=== PATIENT | male | born 1965 | race Caucasian/White ===

== ENCOUNTER → 2018-09-20 10:13 | Outpatient (CLI) | payer OTHER, SELFPAY | PROVIDERS: Visit Provider Physician Assistant | DX: J02.9 Acute pharyngitis, unspecified (principal) | CPT/HCPCS: 87070; 87077; 87185 ==

== ENCOUNTER 2024-04-10 16:33 | Emergency (ER) | payer OTHER, SELFPAY ==
[2024-04-10 16:35] VITALS: BP 129/79; PULSE 94; RESP 17; TEMP 36.9; O2SAT 95; BMI 27.4
--- NOTE | 2024-04-10 16:45 | ED_ITS ---
HPI - Back Pain/Injury <Tabby Parmar PA-C - Last Filed: 04/10/24 19:56> General Chief Complaint: Back Pain/Injury Stated Complaint: back px, urinating blood Time Seen by Provider: 04/10/24 16:45 Source: patient History of Present Illness HPI Narrative: Mr. Fernie Tony is a very pleasant 58-year-old male with only reported past medical history of bilateral testicular surgery when he was 1 years old who presents to the emergency department with his from home for mid low back pain x4 days and hematuria and bladder dysfunction since early this morning. Patient states Friday he noticed some pain in his mid low back there was no inciting injury or direct trauma. States the pain got slightly better on . However last night the pain got much worse and in the middle of the night he went to the bathroom and noticed he was having a difficult time urinating, he dribbles bloody urine onto the floor. Feels like he is unable to empty his bladder fully. He denies abdominal pain, flank pain, constipation or diarrhea, loss of bowel control, numbness and tingling of the lower legs or the groin. No pain in the legs. Denies chest pain, shortness of breath, fevers, flu symptoms, cough. He took Advil last night but no medications today. No drug use, nonsmoker. He uses alcohol very occasionally. Bladder scan obtained immediately in the emergency department reveals only 45 mL in the bladder. Related Data Previous Rx's Medication Instructions Recorded sulfamethoxazole 800 1 tab PO BID 7 days #14 tabs 04/10/24 mg-trimethoprim 160 mg tablet (Bactrim DS) Allergies Allergy/AdvReac Type Severity Reaction Status Date / Time No Known Drug Allergies Allergy Verified 04/10/24 16:35 Review of Systems <Tabby Parmar PA-C - Last Filed: 04/10/24 19:56> Review of Systems ROS Unobtainable: All systems reviewed & are unremarkable except as noted in HPI and below Patient History <Tabby Parmar PA-C - Last Filed: 04/10/24 19:56> Social History Smoking Status: Never smoker Smoking Status: Never smoker Alcohol type: beer Exam <Tabby Parmar PA-C - Last Filed: 04/10/24 19:56> Narrative Exam Narrative: GENERAL: 58 year old patient appears stated age. Well-developed patient, in no acute distress. HEAD: Atraumatic. Normocephalic. NECK: Trachea midline. Cervical ROM intact. CARDIOVASCULAR: Regular rate and rhythm. RESPIRATORY: ?Nonlabored respirations. ?Speaking in clear, full sentences. ?Clear to auscultation. GASTROINTESTINAL: Abdomen soft, non-tender, nondistended. Normal bowel sounds. EXTREMITIES: No edema or joint tenderness. BACK: Subjective pain in the mid lumbar spine region with no reproducible pain or tenderness. Mild erythema over this area reported from heating pad use. No pain lying flat, pain when sitting upright. No CVA tenderness bilaterally. Bilateral positive straight leg raise at 90? NEURO: AOx3. ?Clear speech. ?Moves all 4 extremities appropriately. Sensation intact to light touch in the bilateral lower extremities, groin, on the plantar and dorsal aspect of the feet. Strong DP and PT pulses bilaterally. SKIN: No rashes Initial Vital Signs Initial Vital Signs: Vital Signs Temperature 98.5 F 04/10/24 16:35 Pulse Rate 94 H 04/10/24 16:35 Respiratory Rate 17 04/10/24 16:35 Blood Pressure 129/79 04/10/24 16:35 Pulse Oximetry 95 04/10/24 16:35 Oxygen Delivery Method Room Air 04/10/24 16:35 <Nhan Rdz MD - Last Filed: 04/10/24 21:25> Initial Vital Signs Initial Vital Signs: Vital Signs Temperature 98.5 F 04/10/24 16:35 Pulse Rate 94 H 04/10/24 16:35 Respiratory Rate 17 04/10/24 16:35 Blood Pressure 129/79 04/10/24 16:35 Pulse Oximetry 95 04/10/24 16:35 Oxygen Delivery Method Room Air 04/10/24 16:35 Course <Tabby Parmar PA-C - Last Filed: 04/10/24 19:56> Orders Ordered: ED Orders 04/10/24 17:00 CT IVP A/P W/WO Stat 04/10/24 17:19 CBC Auto Diff [Complete Blood Count AUTO DIFF] Stat CMP [Comprehensive Metabolic Panel] Stat Lipase Stat 04/10/24 18:47 Urine Culture Stat Urine Microscopic Stat Discontinued Medications Sodium Chloride (Normal Saline 0.9%) 1,000 mls @ 1,000 mls/hr IV BOLUS ONE Stop: 04/10/24 18:12 Last Infusion: 04/10/24 18:25 Dose: Infused Documented By: Admin: 04/10/24 17:24 Dose: 1,000 mls/hr Documented By: JAMAR Ceftriaxone Sodium 1,000 mg/ (Sodium Chloride) 100 mls @ 200 mls/hr IV NOW ONE Stop: 04/10/24 19:22 Last Infusion: 04/10/24 20:04 Dose: Infused Documented By: Admin: 04/10/24 19:35 Dose: 200 mls/hr Documented By: ALAN Ketorolac Tromethamine (Ketorolac 30 Mg/Ml Vial) 15 mg IV NOW ONE Stop: 04/10/24 17:01 Last Admin: 04/10/24 17:24 Dose: 15 mg Documented By: JAMAR Morphine Sulfate (Morphine 4 Mg/Ml Inj) 4 mg IV NOW ONE Stop: 04/10/24 17:04 Last Admin: 04/10/24 17:25 Dose: 4 mg Documented By: JAMAR Ondansetron HCl (Ondansetron 4 Mg/2 Ml Inj) 4 mg IV NOW ONE Stop: 04/10/24 17:04 Last Admin: 04/10/24 17:24 Dose: 4 mg Documented By: JAMAR Vital Signs Vital signs: Vital Signs - 8 hr 04/10/24 16:35 04/10/24 18:08 04/10/24 18:30 Temperature 98.5 F Pulse Rate 94 H 73 78 Respiratory Rate 17 16 Blood Pressure 129/79 Pulse Oximetry 95 94 Oxygen Delivery Method Room Air Room Air 04/10/24 18:51 04/10/24 18:51 04/10/24 19:59 Temperature Pulse Rate 65 52 L Respiratory Rate 14 14 Blood Pressure 109/63 140/82 Pulse Oximetry 94 97 Oxygen Delivery Method Room Air Room Air <Nhan Rdz MD - Last Filed: 04/10/24 21:25> Orders Ordered: ED Orders 04/10/24 17:00 CT IVP A/P W/WO Stat 04/10/24 17:19 CBC Auto Diff [Complete Blood Count AUTO DIFF] Stat CMP [Comprehensive Metabolic Panel] Stat Lipase Stat 04/10/24 18:47 Urine Culture Stat Urine Microscopic Stat Discontinued Medications Sodium Chloride (Normal Saline 0.9%) 1,000 mls @ 1,000 mls/hr IV BOLUS ONE Stop: 04/10/24 18:12 Last Infusion: 04/10/24 18:25 Dose: Infused Documented By: Admin: 04/10/24 17:24 Dose: 1,000 mls/hr Documented By: MLVika Ceftriaxone Sodium 1,000 mg/ (Sodium Chloride) 100 mls @ 200 mls/hr IV NOW ONE Stop: 04/10/24 19:22 Last Infusion: 04/10/24 20:04 Dose: Infused Documented By: Admin: 04/10/24 19:35 Dose: 200 mls/hr Documented By: ALAN Ketorolac Tromethamine (Ketorolac 30 Mg/Ml Vial) 15 mg IV NOW ONE Stop: 04/10/24 17:01 Last Admin: 04/10/24 17:24 Dose: 15 mg Documented By: JAMAR Morphine Sulfate (Morphine 4 Mg/Ml Inj) 4 mg IV NOW ONE Stop: 04/10/24 17:04 Last Admin: 04/10/24 17:25 Dose: 4 mg Documented By: JAMAR Ondansetron HCl (Ondansetron 4 Mg/2 Ml Inj) 4 mg IV NOW ONE Stop: 04/10/24 17:04 Last Admin: 04/10/24 17:24 Dose: 4 mg Documented By: JAMAR Vital Signs Vital signs: Vital Signs - 8 hr 04/10/24 16:35 04/10/24 18:08 04/10/24 18:30 Temperature 98.5 F Pulse Rate 94 H 73 78 Respiratory Rate 17 16 Blood Pressure 129/79 Pulse Oximetry 95 94 Oxygen Delivery Method Room Air Room Air 04/10/24 18:51 04/10/24 18:51 04/10/24 19:59 Temperature Pulse Rate 65 52 L Respiratory Rate 14 14 Blood Pressure 109/63 140/82 Pulse Oximetry 94 97 Oxygen Delivery Method Room Air Room Air MDM - Back Pain/Injury <Tabby Parmar PA-C - Last Filed: 04/10/24 19:56> Medical Records Attestation: I reviewed the patient's medical records. Lab Data 04/10/24 17:19 04/10/24 17:19 Labs: Lab Results 01/25/25 01/25/25 Range/Units 17:19 18:47 WBC 11.2 H (4.5-11.0) X10^3/uL RBC 5.04 (4.5-5.9) X10^6/uL Hgb 15.3 (13.5-17.5) g/dL Hct 44.6 (41-53) % MCV 88.5 (80-100) fL MCH 30.3 (26-34) PG MCHC 34.3 (30-36) % RDW 13.5 (11.6-14.8) % Plt Count 198 (150-400) X10^3/uL Neut % (Auto) 83.8 H (50-75) % Lymph % (Auto) 7.3 L (25-40) % [place] % (Auto) 8.4 (3-14) % Eos % (Auto) 0.1 L (2-4) % Baso % (Auto) 0.4 (0-2) % Neut # (Auto) 9400 H (6560-7070) /uL Lymph # (Auto) 800 L (3971-3767) /uL [place] # (Auto) 900 (0-900) /uL Eos # (Auto) 0 (0-450) /uL Baso # (Auto) 0 (0-100) /uL Sodium 135 L (137-145) mmol/L Potassium 4.3 (3.4-5.1) mmol/L Chloride 102 (98-107) mmol/L Carbon Dioxide 25 (22-32) mmol/L BUN 18 (9-20) mg/dL Creatinine 1.21 (0.66-1.25) mg/dL Estimated GFR > 60 (>60) mL/min BUN/Creatinine Ratio 14.9 (6-22) Glucose 106 H (70-100) mg/dL Calcium 9.4 (8.4-10.2) mg/dL Total Bilirubin 1.8 H (0.2-1.3) mg/dL AST 28 (17-59) IU/L ALT 33 (<50) IU/L Alkaline Phosphatase 45 (38-126) U/L Total Protein 7.9 (6.3-8.2) g/dL Albumin 4.5 (3.5-5.0) g/dL Globulin 3.4 (1.7-4.1) g/dL Albumin/Globulin Ratio 1.3 (1.0-2.8) Lipase 42 (23-300) U/L Urine RBC 5-10/hpf H (0-5/HPF) Urine WBC 5-10/hpf H (0-5/HPF) Ur Squamous Epith Cells None seen (0-5/HPF) Urine Bacteria Moderate (10-30) H (None) Ur Culture Indicated? Specimen cultured Vol Urine Centrifuged 10ml (spun) MDM Narrative Medical decision making narrative: 58-year-old male with only reported past medical history of bilateral testicular surgery when he was 1 years old who presents to the emergency department with his from home for mid low back pain x4 days and hematuria and bladder dysfunction since early this morning. Differential diagnosis includes but is not limited to neurogenic bladder, spinal stenosis, MARTIN, lumbar radiculopathy, urinary retention, UTI, malignancy, bladder mass, nephrolithiasis, ureterolithiasis, hydronephrosis pyelonephritis, etc. Discussed case with ED attending physician. On exam the patient is in no acute distress, nontoxic appearing, he is in significant pain with going from lying to sitting position. Only has 45 mL in the bladder at this time. Subjective pain in the mid lumbar region with no tenderness, bilateral lower extremities are neurovascularly intact. We will proceed with noncontrast and contrast imaging of the abdomen and pelvis, CBC, CMP, lipase, UA, Toradol morphine Zofran for pain control. Labs reveal WBC count 11.2, hemoglobin 15.3 hematocrit 44.6. Elevated neutrophil % at 83.8%. Sodium 135, BUN 18, creatinine 1.21. Normal lipase 42. Urine reveals 5-10 RBCs, 5-10 WBCs, moderate bacteria, concerning for infection. CT scan reveals moderate generalized bladder wall thickening. Please correlate with a bladder outlet obstruction and outpatient this age. There is no nephrolithiasis or filling defects within the renal collecting system or ureters, no hydronephrosis. Bones reveal age-appropriate bony degenerative changes, no aggressive osseous abnormality. After receiving 1 L of IV fluids and voiding spontaneously, patient had a postvoid residual of about 50 mL. Not consistent with the need for Polanco catheter at this time. We will treat suspected cystitis with 1 g Rocephin in the ED followed by Bactrim b.i.d. x7 days for home. Discussed case significantly with the patient his at the bedside, provided them with a printed copy of CT scan report and discussed all incidental findings. Discussed the importance of following up with urology for cystoscopy. Discussed signs and symptoms to return to the ED for. Patient is verbalized understanding of all information, he is stable for discharge home. <Nhan Rdz MD - Last Filed: 04/10/24 21:25> Lab Data Labs: Lab Results 04/10/24 04/10/24 Range/Units 17:19 18:47 WBC 11.2 H (4.5-11.0) X10^3/uL RBC 5.04 (4.5-5.9) X10^6/uL Hgb 15.3 (13.5-17.5) g/dL Hct 44.6 (41-53) % MCV 88.5 (80-100) fL MCH 30.3 (26-34) PG MCHC 34.3 (30-36) % RDW 13.5 (11.6-14.8) % Plt Count 198 (150-400) X10^3/uL Neut % (Auto) 83.8 H (50-75) % Lymph % (Auto) 7.3 L (25-40) % [place] % (Auto) 8.4 (3-14) % Eos % (Auto) 0.1 L (2-4) % Baso % (Auto) 0.4 (0-2) % Neut # (Auto) 9400 H (3622-6624) /uL Lymph # (Auto) 800 L (1424-1751) /uL [place] # (Auto) 900 (0-900) /uL Eos # (Auto) 0 (0-450) /uL Baso # (Auto) 0 (0-100) /uL Sodium 135 L (137-145) mmol/L Potassium 4.3 (3.4-5.1) mmol/L Chloride 102 (98-107) mmol/L Carbon Dioxide 25 (22-32) mmol/L BUN 18 (9-20) mg/dL Creatinine 1.21 (0.66-1.25) mg/dL Estimated GFR > 60 (>60) mL/min BUN/Creatinine Ratio 14.9 (6-22) Glucose 106 H (70-100) mg/dL Calcium 9.4 (8.4-10.2) mg/dL Total Bilirubin 1.8 H (0.2-1.3) mg/dL AST 28 (17-59) IU/L ALT 33 (<50) IU/L Alkaline Phosphatase 45 (38-126) U/L Total Protein 7.9 (6.3-8.2) g/dL Albumin 4.5 (3.5-5.0) g/dL Globulin 3.4 (1.7-4.1) g/dL Albumin/Globulin Ratio 1.3 (1.0-2.8) Lipase 42 (23-300) U/L Urine RBC 5-10/hpf H (0-5/HPF) Urine WBC 5-10/hpf H (0-5/HPF) Ur Squamous Epith Cells None seen (0-5/HPF) Urine Bacteria Moderate (10-30) H (None) Ur Culture Indicated? Specimen cultured Vol Urine Centrifuged 10ml (spun) Discharge Plan Departure Patient Disposition: Home Clinical Impression: Urinary tract infection Qualifiers: Urinary tract infection type: acute cystitis Hematuria presence: with hematuria Qualified Code(s): N30.01 - Acute cystitis with hematuria Low back pain Qualifiers: Chronicity: acute Back pain laterality: midline Sciatica presence: without sciatica Qualified Code(s): M54.50 - Low back pain, unspecified Instructions: DI for Urinary Tract Infection (UTI) Activity Restrictions/Additional Instructions: Dear Chavo, Thank you for coming into the emergency department today. Today you were evaluated for low back pain, difficulty urinating, blood in your urine. We obtained lab work, a CT scan, and a urinalysis which revealed generalized bladder wall thickening and bacteria in the urine. We will need to treat the bladder infection with antibiotics and you need to follow up with the urologist for further evaluation for possible cystoscopy. You may call to schedule an appointment with [facility], Dr. Rincon, for further management at [phone]. It is very important they complete the full course of antibiotics, hydrate, use ibuprofen/Tylenol as needed for pain. If you are having significant burning with urination you may also try [id number] AZO for urinary pain. Please return to the emergency department immediately if you start passing numerous large clots of blood, are unable to urinate, develop fevers, difficulty walking, weakness, any other concern. Please follow up with your primary care doctor within the next 2-3 days for ER follow-up. (If you do not have a PCP you can call [phone]. ?to schedule an appointment with an [facility] Primary Care Provider) IF YOU DEVELOP ANY NEW OR WORSENING SYMPTOMS, RETURN TO THE ER! Please read the attached instructions, they highlight more specific treatments and interventions for you at home. Thank you for letting me participate in your care, Tabby Parmar PA-C Prescriptions: New sulfamethoxazole-trimethoprim [Bactrim DS] 800-160 mg tablet 1 tab PO BID 7 Days Qty: 14 0RF Referrals: Miscellaneous,DoctorMD [Primary Care Provider] - Stand Alone Forms: Patient Portal/API/Survey ED Sign-out <Nhan Rdz MD - Last Filed: 04/10/24 21:25> Cosign ED Attending Rickieature Attestation: I was immediately available in the department for consultation. This documentation has been reviewed and I agree with assessment and plan. Supervised by Nhan Rdz MD
--- NOTE | 2024-04-10 17:00 | DI.CT.S_ITS ---
1PROCEDURE: CT IVP A/P W/WO INDICATIONS: Mid low back pain hematuria bladder dysfunction TECHNIQUE: Optional 5 mm thick noncontrast images acquired from the diaphragm to the symphysis pubis. After the administration of intravenous contrast, 5 mm thick images acquired from the diaphragm to the symphysis pubis after a 10-minute delay. 2 mm thick coronal and sagittal reformats were then performed of the kidneys and ureters. For radiation dose reduction, the following was used: automated exposure control, adjustment of mA and/or kV according to patient size. COMPARISON: None. FINDINGS: Image quality: Mild dependent atelectasis versus scarring can be seen. A small hiatal hernia is incidentally noted. Kidneys and Ureters: Both kidneys are normal in size, without hydronephrosis or nephrolithiasis. No perinephric fat stranding. There is normal bilateral renal enhancement. Renal calyces appear normal in morphology when filled with contrast. Opacified portions of both ureters demonstrate normal caliber Bladder: Moderate generalized bladder wall thickening can be seen. No calcified bladder stones. OTHER: Lower chest: Unremarkable. Liver: No solid mass. Diffuse fatty liver infiltration is noted. Gallbladder: No radiopaque gallstones or wall thickening. Biliary ducts: No biliary dilation. Pancreas: No ductal dilation. Spleen: Size is within normal limits. Adrenal Glands: No adrenal nodules. Stomach and Bowel: Normal colonic caliber, without significant wall thickening. Mild distal colonic diverticulosis is seen, without findings of active diverticulitis. No dilated loops of small bowel are seen. Peritoneum: No abnormal intraperitoneal fluid. No free air. Ventral Wall: No hernia. Abdominal Nodes: No retroperitoneal or mesenteric adenopathy by size criteria. Vessels: Aorta and inferior vena cava are normal in size. PELVIS: Pelvic Organs: Unremarkable. Pelvic Nodes: No enlarged lymph nodes. Miscellaneous: There is a moderate fat containing left inguinal hernia. Bones: No aggressive osseous abnormality. Age-appropriate bony degenerative changes are seen. IMPRESSION: No nephrolithiasis or filling defects within the opacified renal collecting system or ureters. Negative for hydronephrosis. There is moderate generalized bladder wall thickening. Please correlate with bladder outlet obstruction in a male patient of this age. Additional findings: Fatty liver infiltration Small hiatal hernia Diverticulosis, without active diverticulitis Moderate fat containing left inguinal hernia Dictated by: Parrish Moy M.D. on 04/10/2024 at 17:42 Approved by: Parrish Moy M.D. on 04/10/2024 at 17:45
[2024-04-10] MEDS: SODIUM CHLORIDE 0.9% 1,000 ML 1000 ML IV (17:24)
[2024-04-10] MEDS: ONDANSETRON 4 MG/2 ML INJ IV (17:24)
[2024-04-10] MEDS: KETOROLAC 30 MG/ML VIAL 15 MG IV (17:24)
[2024-04-10] MEDS: MORPHINE 4 MG/ML INJ IV (17:25)
[2024-04-10 17:28] LABS: Add Manual Diff / Slide Review NO; Basophils Absolute Auto 0 /uL (0-100); Basophils Percent Auto 0.4 % (0-2); Eosinophils Absolute Auto 0 /uL (0-450); Eosinophils Percent Auto 0.1 % (2-4); Hematocrit 44.6 % (41-53); Hemoglobin 15.3 g/dL (13.5-17.5); Lymphocytes Absolute Auto 800 /uL (1100-4500); Lymphocytes Percent Auto 7.3 % (25-40); Mean Corpuscular HGB Conc 34.3 % (30-36); Mean Corpuscular Hemoglobin 30.3 PG (26-34); Mean Corpuscular Volume 88.5 fL (80-100); Monocytes Absolute Auto 900 /uL (0-900); Monocytes Percent Auto 8.4 % (3-14); Neutrophils Absolute Auto 9400 /uL (1500-7000); Neutrophils Percent Auto 83.8 % (50-75); Platelet Count 198 X10^3/uL (150-400); Red Blood Cell Count 5.04 X10^6/uL (4.5-5.9); Red Cell Distribution Width 13.5 % (11.6-14.8); White Blood Cell Count 11.2 X10^3/uL (4.5-11.0)
[2024-04-10 17:36] LABS: Alanine Aminotransferase 33 IU/L (<50); Albumin 4.5 g/dL (3.5-5.0); Albumin Globulin Ratio 1.3 (1.0-2.8); Alkaline Phosphatase 45 U/L (38-126); Aspartate Aminotransferase 28 IU/L (17-59); BUN Creatinine Ratio 14.9 (6-22); Bilirubin Total 1.8 mg/dL (0.2-1.3); Blood Urea Nitrogen 18 mg/dL (9-20); Calcium 9.4 mg/dL (8.4-10.2); Carbon Dioxide 25 mmol/L (22-32); Chloride 102 mmol/L (98-107); Estimated Glomerular Filt Rate > 60 mL/min (>60); Globulin 3.4 g/dL (1.7-4.1); Glucose 106 mg/dL (70-100); HEMOLYSIS 20 (0-50); Lipase 42 U/L (23-300); Potassium 4.3 mmol/L (3.4-5.1); Sodium 135 mmol/L (137-145); Total Protein 7.9 g/dL (6.3-8.2)
--- NOTE | 2024-04-10 17:46 | PC.NURSE ---
patient does recall pushing about a 20lbs crate at work and having some pain at that time. Pain continues. Noted blood in urine. Had some intermittent incontinence of urine.
[2024-04-10 18:08] VITALS: PULSE 73; RESP 16; O2SAT 94
[2024-04-10 18:30] VITALS: PULSE 78
[2024-04-10 18:51] VITALS: BP 109/63; PULSE 65; RESP 14; O2SAT 94
[2024-04-10 19:03] LABS: Bacteria Urine Moderate (10-30); RBC Urine 5-10/HPF (0-5/HPF); Squamous Epithelial Cell Urine None Seen (0-5/HPF); Urine Volume 10mL (spun)
[2024-04-10 19:04] LABS: Culture Indicated Urine Specimen Cultured; WBC Urine 5-10/HPF (0-5/HPF)
[2024-04-10] MEDS: cefTRIAXone 1,000 MG in SODIUM CHLORIDE 0.9% 100 ML 200 MG IV (19:35)
[2024-04-10 19:59] VITALS: BP 140/82; PULSE 52; RESP 14; O2SAT 97
--- NOTE | 2024-04-13 12:41 | ED_ITS ---
HPI - Back Pain/Injury General Chief Complaint: Back Pain/Injury Stated Complaint: back px, urinating blood Time Seen by Provider: 04/10/24 16:45 Source: patient Related Data Previous Rx's Medication Instructions Recorded sulfamethoxazole 800 1 tab PO BID 7 days #14 tabs 04/10/24 mg-trimethoprim 160 mg tablet (Bactrim DS) levofloxacin 500 mg tablet 500 mg PO DAILY 7 days #7 tabs 04/13/24 Allergies Allergy/AdvReac Type Severity Reaction Status Date / Time No Known Drug Allergies Allergy Verified 04/10/24 16:35 Patient History Social History Smoking Status: Never smoker Smoking Status: Never smoker Alcohol type: beer Exam Initial Vital Signs Initial Vital Signs: Vital Signs Temperature 98.5 F 04/10/24 16:35 Pulse Rate 94 H 04/10/24 16:35 Respiratory Rate 17 04/10/24 16:35 Blood Pressure 129/79 04/10/24 16:35 Pulse Oximetry 95 04/10/24 16:35 Oxygen Delivery Method Room Air 04/10/24 16:35 Course Orders Ordered: Discontinued Medications Sodium Chloride (Normal Saline 0.9%) 1,000 mls @ 1,000 mls/hr IV BOLUS ONE Stop: 04/10/24 18:12 Last Infusion: 04/10/24 18:25 Dose: Infused Documented By: Admin: 04/10/24 17:24 Dose: 1,000 mls/hr Documented By: JAMAR Ceftriaxone Sodium 1,000 mg/ (Sodium Chloride) 100 mls @ 200 mls/hr IV NOW ONE Stop: 04/10/24 19:22 Last Infusion: 04/10/24 20:04 Dose: Infused Documented By: Admin: 04/10/24 19:35 Dose: 200 mls/hr Documented By: ALAN Ketorolac Tromethamine (Ketorolac 30 Mg/Ml Vial) 15 mg IV NOW ONE Stop: 04/10/24 17:01 Last Admin: 04/10/24 17:24 Dose: 15 mg Documented By: JAMAR Morphine Sulfate (Morphine 4 Mg/Ml Inj) 4 mg IV NOW ONE Stop: 04/10/24 17:04 Last Admin: 04/10/24 17:25 Dose: 4 mg Documented By: MLM Ondansetron HCl (Ondansetron 4 Mg/2 Ml Inj) 4 mg IV NOW ONE Stop: 04/10/24 17:04 Last Admin: 04/10/24 17:24 Dose: 4 mg Documented By: JAMAR MDM - Back Pain/Injury Lab Data 04/10/24 17:19 04/10/24 17:19 Labs: Lab Results 04/10/24 04/10/24 Range/Units 17:19 18:47 WBC 11.2 H (4.5-11.0) X10^3/uL RBC 5.04 (4.5-5.9) X10^6/uL Hgb 15.3 (13.5-17.5) g/dL Hct 44.6 (41-53) % MCV 88.5 (80-100) fL MCH 30.3 (26-34) PG MCHC 34.3 (30-36) % RDW 13.5 (11.6-14.8) % Plt Count 198 (150-400) X10^3/uL Neut % (Auto) 83.8 H (50-75) % Lymph % (Auto) 7.3 L (25-40) % [place] % (Auto) 8.4 (3-14) % Eos % (Auto) 0.1 L (2-4) % Baso % (Auto) 0.4 (0-2) % Neut # (Auto) 9400 H (2041-6370) /uL Lymph # (Auto) 800 L (9929-7200) /uL [place] # (Auto) 900 (0-900) /uL Eos # (Auto) 0 (0-450) /uL Baso # (Auto) 0 (0-100) /uL Sodium 135 L (137-145) mmol/L Potassium 4.3 (3.4-5.1) mmol/L Chloride 102 (98-107) mmol/L Carbon Dioxide 25 (22-32) mmol/L BUN 18 (9-20) mg/dL Creatinine 1.21 (0.66-1.25) mg/dL Estimated GFR > 60 (>60) mL/min BUN/Creatinine Ratio 14.9 (6-22) Glucose 106 H (70-100) mg/dL Calcium 9.4 (8.4-10.2) mg/dL Total Bilirubin 1.8 H (0.2-1.3) mg/dL AST 28 (17-59) IU/L ALT 33 (<50) IU/L Alkaline Phosphatase 45 (38-126) U/L Total Protein 7.9 (6.3-8.2) g/dL Albumin 4.5 (3.5-5.0) g/dL Globulin 3.4 (1.7-4.1) g/dL Albumin/Globulin Ratio 1.3 (1.0-2.8) Lipase 42 (23-300) U/L Urine RBC 5-10/hpf H (0-5/HPF) Urine WBC 5-10/hpf H (0-5/HPF) Ur Squamous Epith Cells None seen (0-5/HPF) Urine Bacteria Moderate (10-30) H (None) Ur Culture Indicated? Specimen cultured Vol Urine Centrifuged 10ml (spun) MDM Narrative Medical decision making narrative: Patient's urine culture shows E coli greater than 100,000 resistance to Bactrim which patient was discharged home on so we will have patient contacted changed to Levaquin 500 mg 1 p.o. q.day for 7 days sent to [facility] Discharge Plan Departure Patient Disposition: Home Clinical Impression: Urinary tract infection Qualifiers: Urinary tract infection type: acute cystitis Hematuria presence: with hematuria Qualified Code(s): N30.01 - Acute cystitis with hematuria Low back pain Qualifiers: Chronicity: acute Back pain laterality: midline Sciatica presence: without sciatica Qualified Code(s): M54.50 - Low back pain, unspecified Instructions: DI for Urinary Tract Infection (UTI) Activity Restrictions/Additional Instructions: Dear Ron Chavo, Thank you for coming into the emergency department today. Today you were evaluated for low back pain, difficulty urinating, blood in your urine. We obtained lab work, a CT scan, and a urinalysis which revealed generalized bladder wall thickening and bacteria in the urine. We will need to treat the bladder infection with antibiotics and you need to follow up with the urologist for further evaluation for possible cystoscopy. You may call to schedule an appointment with [facility], Dr. Rincon, for further management at [phone]. It is very important they complete the full course of antibiotics, hydrate, use ibuprofen/Tylenol as needed for pain. If you are having significant burning with urination you may also try [id number] AZO for urinary pain. Please return to the emergency department immediately if you start passing numerous large clots of blood, are unable to urinate, develop fevers, difficulty walking, weakness, any other concern. Please follow up with your primary care doctor within the next 2-3 days for ER follow-up. (If you do not have a PCP you can call [phone]. ?to schedule an appointment with an [facility] Primary Care Provider) IF YOU DEVELOP ANY NEW OR WORSENING SYMPTOMS, RETURN TO THE ER! Please read the attached instructions, they highlight more specific treatments and interventions for you at home. Thank you for letting me participate in your care, Tabby Parmar PA-C Prescriptions: New sulfamethoxazole-trimethoprim [Bactrim DS] 800-160 mg tablet 1 tab PO BID 7 Days Qty: 14 0RF levofloxacin 500 mg tablet 500 mg PO DAILY 7 Days Qty: 7 0RF Referrals: Miscellaneous,Doctor, MD [Primary Care Provider] - Stand Alone Forms: Patient Portal/API/Survey
== END 2024-04-10 20:05 | disposition home or self-care (01) ==
PROVIDERS: Emergency Provider Physician Assistant
DX: N30.01 Acute cystitis with hematuria (principal); M54.50 Low back pain, unspecified
CPT/HCPCS: 51798; 74178; 80053; 81015; 83690; 85025; 87077; 87086; 87186; 96361; 96365; 96375; 99284; J0696; J1885; J2270; J2405; Q9967